=== PATIENT | male | born 1975 | race Caucasian/White ===

== ENCOUNTER 2017-09-02 00:48 | Emergency (ER) | payer OTHER ==
[2017-09-02] MEDS ORDERED: SODIUM CHLORIDE 500 ML IV STA (01:08)
--- NOTE | 2017-09-02 01:14 | PDOC ---
History of Present Illness - General Chief Complaint: Chest Pain Stated Complaint: CHEST TIGHTNESS,SOB Time Seen by Provider: 09/02/17 00:58 History Source: Patient, Spouse Exam Limitations: No Limitations - History of Present Illness Initial Comments: 09/02/17 01:09 41yo Male patient with no significant past medical history presents to ED c/o Chest Pains/Tightness. Patient states for the past 2 weeks he has been dealing with a cold, he went to Urgent Care today and was prescribed Z-Gary and Flonase. Approximately 1 hour ago, he developed chest tightness with feelings of unable to breathe. Associated hot flashes and cold sweats reported. Patient reports smoking 1ppd cigarettes. He denies any other complaints at this time. PCP- Dr. Nino ([facility]). Presenting Symptoms: Chest Pain Timing/Duration: reports: intermittent Severity/Quality: reports: pressure, tightness. denies: mild, moderate, severe , aching, burning, dull, ingestion, sharp, stabbing, tearing, other Location: reports: other (Left Chest). denies: substernal, central, epigastric , shoulder, back, abdomen Chest Pain Radiation: reports: no radiation. denies: jaw, arms, neck, shoulders , back, sternal notch, epigastric, other Activities at Onset: reports: no specific activity. denies: none, exertion, emotional upset, rest, sleep, eating, working, sexual intercourse, other Prior Chest Pain/Cardiac Workup: denies: No prior chest pain, No prior cardiac workup, Non-cardiac, Angina, Cardiac Cath, Cardiolye Scan, Echocardiography, Heart Attack, Pulmonary Embolism, Stress Test, Thallium Scan, Other Past History - Travel Traveled outside of the country in the last 30 days: No Close contact w/someone who was outside of country & ill: No - Past Medical History Allergies/Adverse Reactions: Allergies Allergy/AdvReac Type Severity Reaction Status Date / Time No Known Allergies Allergy Verified 09/02/17 01:03 Home Medications: Ambulatory Orders Acetaminophen W/ Codeine #3 [Tylenol # 3] 1 - 2 combo PO Q4HWA PRN #20 tablet Cephalexin Monohydrate [Keflex] 500 mg PO QID #20 capsule 03/12/12 - Immunization History Td Vaccination: Yes - Suicide/Smoking/Psychosocial Hx Smoking Status: Yes Smoking History: Never smoked Have you smoked in the past 12 months: No Number of Cigarettes Smoked Daily: 20 Information on smoking cessation initiated: No Hx Alcohol Use: No Drug/Substance Use Hx: No Cardiac Specific PMH - Complaint Specific PMHX Abdominal Aortic Aneurysm: No Angina: No Cardiac Arrhythmia: No Cardiac Stent: No GERD: No Myocardial Infarction: No Pacemaker: No Pulmonary Embolus: No Valvular Heart Disease: No Peripheral Vascular Disease: No Review of Systems - Review of Systems Able to Perform ROS?: Yes Is the patient limited [place]ian proficient: No Constitutional: Yes: Chills. No: Fever Respiratory: Yes: Other (Trouble Breathing) Cardiac (ROS): Yes: Chest Pain ABD/GI: No: Constipated, Diarrhea, Nausea, Poor Appetite, Poor Fluid Intake, Vomiting, Abdominal cramping : No: Dysuria, Hematuria, Testicular Swelling Musculoskeletal: No: Back Pain Integumentary: Yes: Sweating. No: Erythema, Lesions, Lumps Neurological: No: Headache All Other Systems: Reviewed and Negative *Physical Exam - Vital Signs Last Vital Signs Temp Pulse Resp BP Pulse Ox 98.9 F 77 18 115/86 99 09/02/17 01:03 09/02/17 01:03 09/02/17 01:03 09/02/17 01:03 09/02/17 01:03 - Physical Exam General Appearance: Yes: Nourished, Appropriately Dressed. No: Apparent Distress, Mild Distress, Moderate Distress, Severe Distress Neck: positive: Trachea midline, Normal Thyroid, Supple. negative: Lymphadenopathy (R), Lymphadenopathy (L) Respiratory/Chest: positive: Lungs Clear, Normal Breath Sounds. negative: Chest Tender, Respiratory Distress, Accessory Muscle Use, Labored Respiration, Rapid RR, Crackles, Stridor, Wheezing Cardiovascular: positive: Regular Rhythm, Regular Rate. negative: JVD, Murmur Gastrointestinal/Abdominal: positive: Normal Bowel Sounds, Soft. negative: Tender, Flat, Organomegaly, Pulsatile Mass, Increased Bowel Sounds, Distended, Guarding, Rebound, Tenderness Musculoskeletal: positive: Normal Inspection. negative: CVA Tenderness, Decreased Range of Motion, Vertebral Tenderness Extremity: positive: Normal Capillary Refill, Normal Inspection, Normal Range of Motion. negative: Swelling, Calf Tenderness, Erythema, Inflammation Integumentary: positive: Normal Color, Dry, Warm. negative: Swelling Neurologic: positive: sock mender II-XII NML intact, Fully Oriented, Alert, Normal Mood/ Affect, Normal Response, Motor Strength 12/23 ED Treatment Course - RADIOLOGY Radiology Studies Ordered: Category Date Time Status CHEST PA & LAT [RAD] Stat Radiology 09/02/17 01:08 Ordered *DC/Admit/Observation/Transfer - Referrals Referrals: Xavi Nino [Primary Care Provider] - - Patient Instructions - Post Discharge Activity
[2017-09-02 01:43] LABS: BASO % 0.9 % (0-2.0); EOS % 4.6 % (0-4.5); HEMOGLOBIN 14.8 GM/dL (11.7-16.9); LYMPH % 28.4 % (8-40); MCH 31.1 pg (25.7-33.7); MCHC 34.4 g/dl (32.0-35.9); MEAN CELL VOLUME 90.4 fl (80-96); MEAN PLT VOLUME 8.7 fl (7.5-11.1); MONO % 9.9 % (3.8-10.2); NEUT % 56.2 % (42.8-82.8); PLATELET COUNT 245 K/MM3 (134-434); RBC 4.75 M/mm3 (4.00-5.60); WHITE BLOOD COUNT 8.7 K/mm3 (4.0-10.0)
[2017-09-02 01:52] LABS: URINE APPEARANCE CLEAR; URINE BILIRUBIN NEGATIVE (NEGATIVE); URINE BLOOD NEGATIVE (NEGATIVE); URINE COLOR LTYELLOW; URINE GLUCOSE (UA) NEGATIVE (NEGATIVE); URINE KETONE NEGATIVE (NEGATIVE); URINE LEUK ESTERASE TRACE (NEGATIVE); URINE NITRITE NEGATIVE (NEGATIVE); URINE PROTEIN NEGATIVE (NEGATIVE)
[2017-09-02 02:05] LABS: URINE MUCUS RARE
[2017-09-02 02:09] LABS: ALBUMIN 3.7 g/dl (3.4-5.0); ANION GAP 11 (8-16); BILIRUBIN,TOTAL 0.3 mg/dL (0.2-1.0); BLOOD UREA NITROGEN 17 mg/dL (7-18); CALCIUM 8.9 mg/dL (8.5-10.1); CHLORIDE 104 mmol/L (98-107); CO2 24 mmol/L (21-32); CREATININE 0.8 mg/dL (0.7-1.3); GLUCOSE,RANDOM 171 mg/dL (74-106); SGPT/ALT 44 U/L (12-78); SODIUM 139 mmol/L (136-145); TOT PROT 7.1 g/dl (6.4-8.2)
[2017-09-02 02:12] LABS: ALK PHOS 104 U/L (45-117)
[2017-09-02 02:13] LABS: POTASSIUM 3.8 mmol/L (3.5-5.1); SGOT/AST 29 U/L (15-37)
[2017-09-02] MEDS ORDERED: morphine CARPU-JECT 4 MG/1 ML DISP.SYRIN IVPUSH ONE (02:30)
[2017-09-02] MEDS ORDERED: ONDANSETRON 4 MG/2 ML VIAL IVPUSH ONE (02:30)
[2017-09-02 02:31] LABS: COCAINE, UR NEGATIVE ng/ml (CUTOFF=300); METHADONE, UR NEGATIVE ng/ml (CUTOFF=300); OPIATES, URI NEGATIVE ng/ml (CUTOFF=300); PHENCYCLIDINE,URINE NEGATIVE ng/ml (CUTOFF=25); URINE AMPHETAMINES NEGATIVE ng/ml (CUTOFF=500); URINE BARBITURATES NEGATIVE ng/ml (CUTOFF=200); URINE BENZODIAZEPINES NEGATIVE ng/ml (CUTOFF=200)
[2017-09-02] MEDS ORDERED: ONDANSETRON 4 MG/2 ML VIAL ONE (02:35)
[2017-09-02] MEDS ORDERED: morphine CARPU-JECT 10 MG/1 ML DISP.SYRIN ONE (02:35)
--- NOTE | 2017-09-02 07:46 | PDOC ---
*Physical Exam - Vital Signs Last Vital Signs Temp Pulse Resp BP Pulse Ox 98.9 F 77 18 115/86 99 09/02/17 01:03 09/02/17 01:03 09/02/17 01:03 09/02/17 01:03 09/02/17 01:03 - Physical Exam General Appearance: Yes: Appropriately Dressed. No: Apparent Distress HEENT: positive: Normal Voice Neck: positive: Supple Respiratory/Chest: positive: Lungs Clear, Normal Breath Sounds. negative: Respiratory Distress Cardiovascular: positive: Regular Rate, S1, S2 Gastrointestinal/Abdominal: positive: Soft Extremity: positive: Normal Inspection Integumentary: positive: Dry, Warm Neurologic: positive: Fully Oriented, Alert, Normal Mood/Affect ED Treatment Course - LABORATORY CBC & Chemistry Diagram: 09/02/17 01:32 09/02/17 01:32 - ADDITIONAL ORDERS Additional order review: Laboratory Results 09/02/17 09/02/17 09/02/17 01:44 01:44 01:32 D-Dimer Sodium Potassium Chloride Carbon Dioxide Anion Gap BUN Creatinine Creat Clearance w eGFR Random Glucose Calcium Total Bilirubin AST ALT Alkaline Phosphatase Creatine Kinase Troponin I Total Protein Albumin TSH 3.12 Urine Color Ltyellow Urine Appearance Clear Urine pH 6.0 Ur Specific [place] 1.024 Urine Protein Negative Urine Glucose (UA) Negative Urine Ketones Negative Urine Blood Negative Urine Nitrite Negative Urine Bilirubin Negative Urine Urobilinogen 2.0 Ur Leukocyte Esterase Trace Urine WBC (Auto) 8 Urine RBC (Auto) 3 Urine Mucus Rare Opiates Screen Negative Methadone Screen Negative Barbiturate Screen Negative Phencyclidine Screen Negative Ur Amphetamines Screen Negative MDMA (Ecstasy) Screen Negative Benzodiazepines Screen Negative Cocaine Screen Negative U Marijuana (THC) Screen Negative 09/02/17 09/02/17 01:32 01:32 D-Dimer 378 Sodium 139 Potassium 3.8 Chloride 104 Carbon Dioxide 24 Anion Gap 11 BUN 17 Creatinine 0.8 Creat Clearance w eGFR > 60 Random Glucose 171 H Calcium 8.9 Total Bilirubin 0.3 AST 29 ALT 44 Alkaline Phosphatase 104 Creatine Kinase 110 Troponin I < 0.02 Total Protein 7.1 Albumin 3.7 TSH Urine Color Urine Appearance Urine pH Ur Specific [place] Urine Protein Urine Glucose (UA) Urine Ketones Urine Blood Urine Nitrite Urine Bilirubin Urine Urobilinogen Ur Leukocyte Esterase Urine WBC (Auto) Urine RBC (Auto) Urine Mucus Opiates Screen Methadone Screen Barbiturate Screen Phencyclidine Screen Ur Amphetamines Screen MDMA (Ecstasy) Screen Benzodiazepines Screen Cocaine Screen U Marijuana (THC) Screen 09/02/17 01:32 RBC 4.75 MCV 90.4 MCHC 34.4 RDW 12.0 MPV 8.7 Neutrophils % 56.2 Lymphocytes % 28.4 Monocytes % 9.9 Eosinophils % 4.6 H Basophils % 0.9 - Medications Given in the ED: ED Medications Discontinued Medications Generic Name Dose Route Start Last Admin Trade Name Cassidy PRN Reason Stop Dose Admin Sodium Chloride 500 mls @ 500 mls/hr 09/02/17 01:08 09/02/17 01:35 Normal Saline - IV 09/02/17 02:07 500 mls/hr ASDIR STA Administration Morphine Sulfate 4 mg 09/02/17 02:30 09/02/17 02:46 Morphine Injection - IVPUSH 09/02/17 02:31 4 mg ONCE ONE Administration Ondansetron HCl 4 mg 09/02/17 02:30 09/02/17 02:47 Zofran Injection IVPUSH 09/02/17 02:31 4 mg ONCE ONE Administration Medical Decision Making - Medical Decision Making 09/02/17 07:39 Patient signed out to me at 7 AM by ELVIE Nazario Patient is a 41-year-old male, > 20 ppd hx, presents with chest pain. Patient states approximately one week ago he developed productive cough with nasal congestion and was started on zpack yesterday after he presented to urgent care. Last night, developed diffuse, non-radiating pressure like chest pain, not associated with cough that has been mostly constant and since improved. No nausea, vomiting, diaphoresis, or palpitations. Pain better when he stands up and walks around per patient. No history of similar pain in the past. Patient well-appearing and stable with unremarkable EKG, hest x-ray, labs including first troponin. Second troponin pending. If negative can be discharged as per prior team. 09/02/17 07:46 Second troponin is negative. Patient asymptomatic at this time and well- appearing. Will discharge with PMD follow-up *DC/Admit/Observation/Transfer Diagnosis at time of Disposition: Chest pain Qualifiers: Chest pain type: unspecified Qualified Code(s): R07.9 - Chest pain, unspecified - Discharge Dispostion Disposition: HOME Condition at time of disposition: Improved - Referrals Referrals: Xavi Nino [Primary Care Provider] - - Patient Instructions Printed Discharge Instructions: DI for Atypical Chest Pain, Reasons to Quit Smoking, How to Quit Smoking Additional Instructions: The cause of your chest pain is possibly related to your current upper respiratory infection Your EKG, chest x-ray and labs were all negative. Complete antibiotics Strongly consider smoking cessation as tobacco use can cause heart disease, stroke, cancer, among other comorbidities. Please follow-up with your doctor - Post Discharge Activity
[2017-09-02 08:02] VITALS: BP 128/80; PULSE 67; TEMP 98.7
--- NOTE | 2017-09-02 16:44 | EKG ---
Test Reason : Blood Pressure : / mmHG Vent. Rate : 086 BPM Atrial Rate : 086 BPM P-R Int : 158 ms QRS Dur : 094 ms QT Int : 374 ms P-R-T Axes : 075 048 070 degrees QTc Int : 447 ms NORMAL SINUS RHYTHM NORMAL ECG NO PREVIOUS ECGS AVAILABLE Confirmed by SURJIT OLIVA MD ([id number]) on 09/02/2017 4:43:44 PM Referred By: Confirmed By:SURJIT OLIVA MD
== END 2017-09-02 08:03 | disposition home or self-care (01) ==
LOC: JER 00:48
PROC: 3E0337Z Introduction of Electrolytic and Water Balance Substance into Peripheral Vein, Percutaneous Approach (ICD-10-PCS; principal; 2017-09-02)
PROC: 3E033GC Introduction of Other Therapeutic Substance into Peripheral Vein, Percutaneous Approach (ICD-10-PCS; 2017-09-02)
PROC: 3E033NZ Introduction of Analgesics, Hypnotics, Sedatives into Peripheral Vein, Percutaneous Approach (ICD-10-PCS; 2017-09-02)
DX: R07.89 Other chest pain (principal)
CPT/HCPCS: 36415; 71046-TC; 80053; 80307; 81003; 81015; 82550; 84443; 84484; 85025; 85379; 93005; 93010; 99284-25

== ENCOUNTER 2019-05-05 17:30 | Emergency (ER) | payer OTHER | END 2019-05-05 18:30 | disposition home or self-care (01) | LOC: FER 17:30 ==

== ENCOUNTER 2022-12-15 04:25 | Day surgery (SDC) | payer OTHER ==
[2022-12-12 10:45] VITALS: BMI 31.2
[2022-12-15 10:52] VITALS: TEMP 98
[2022-12-15 11:23] VITALS: PULSE 73
[2022-12-15 14:27] VITALS: BP 115/70; RESP 20
== END 2022-12-15 10:15 | disposition home or self-care (01) ==
LOC: JASU-ENDO 04:25
PROVIDERS: ATTEND Internal Medicine Gastroenterology
PROC: 0DB78ZX Excision of Stomach, Pylorus, Via Natural or Artificial Opening Endoscopic, Diagnostic (ICD-10-PCS; 2022-12-15)
PROC: 0DBP8ZX Excision of Rectum, Via Natural or Artificial Opening Endoscopic, Diagnostic (ICD-10-PCS; principal; 2022-12-15 09:00)
DX: Z12.11 Encounter for screening for malignant neoplasm of colon (principal); D12.8 Benign neoplasm of rectum; K57.30 Diverticulosis of large intestine without perforation or abscess without bleeding; K29.50 Unspecified chronic gastritis without bleeding; B96.81 Helicobacter pylori [H. pylori] as the cause of diseases classified elsewhere
CPT/HCPCS: 88305-TC; 88342-TC